=== PATIENT | female | born 1980 | race Caucasian/White ===

== ENCOUNTER 2017-04-17 11:10 | Emergency (ER) | payer SELFPAY ==
--- NOTE | 2017-04-17 11:32 | ED ---
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 Patient states she was trying to take the cap off of a needle to wast however it slipped and stuck her left thumb. Patient had access to patient/source medical record as she was providing care and states she has no history of HIV or hepatitis and has routine bloodwork taking due to . States she is not concerned however was following protocol. Denies any complaints or concerns at this time. Tetanus is UTD. Denies . 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 Mechanism of Injury: trying to waste a capped needle however slipped sticking her left thumb Needlestick: Hollow Needle Blood on Needle: Yes - unknown however it was a used needle Depth of Needlestick: Puncture - with scratch Bleeding at Site: Yes - very minimal Body Fluid Exposure: Blood Treatment [employer] SOFTWARE DEVELOPMENT ENGINEER: Cleaned Wound, Irrigation - Source Information HIV: No Hepatitis: No - Risk Factors Needlestick Risk Factor: Low Risk: Superficial Scratch, Low Risk: Short Duration , Low Risk: Source HIV/Hepatitis B Negative/Asymptomatic - Other Discussed Post-Exposure prophylaxis (PEP) for HIV: Declined Discussed PEP for Hepatitis-B: Declined Serologic Testing (HIV/HBV) Declined by Patient: No (Must be retained for 90 days, if drawn) PMH/Surg Hx/FS Hx/Imm Hx Endocrine/Hematology History: Denies: Hx Diabetes, Hx Thyroid Disease Cardiovascular History: Denies: Hx Hypercholesterolemia, Hx Hypertension, Hx Peripheral Vascular Disease Respiratory History: Denies: Hx Asthma Musculoskeletal History: Denies: Hx Arthritis, Hx Osteoporosis, Hx Scoliosis Sensory History: Denies: Hx Cataracts, Hx Contacts or Glasses, Hx Glaucoma Opthamlomology History: Denies: Hx Cataracts, Hx Contacts or Glasses, Hx Glaucoma Neurological History: Denies: Hx Headaches, Hx Seizures, Hx Transient Ischemic Attacks (TIA), Other Neuro Impairments/Disorders Psychiatric History: Denies: Hx Anxiety, Hx Depression - Surgical History Surgery Procedure, Year, and Place: Lasik eye surgery 2011 - Immunization History Immunizations Up to Date: Yes Infectious Disease History: Denies: Traveled Outside the [place] in Last 30 Days - Family History Known Family History: Positive: None - Social History Alcohol Use: Rare Hx Substance Use: No Substance Use Type: Reports: None Hx Tobacco Use: No Smoking Status (MU): Never Smoked Tobacco Review of Systems Constitutional: Negative Cardiovascular: Negative Respiratory: Negative Gastrointestinal: Negative Musculoskeletal: Negative Positive: Other - needlestick Neurological: Negative All Other Systems Reviewed And Are Negative: Yes Physical Exam Triage Information Reviewed: Yes Vital Signs On Initial Exam: Initial Vitals Temp Pulse Resp BP Pulse Ox 97.4 F 77 18 128/82 98 04/17/17 11:11 04/17/17 11:11 04/17/17 11:11 04/17/17 11:11 04/17/17 11:11 Vital Signs Reviewed: Yes Appearance: Positive: Well-Appearing, No Pain Distress, Well-Nourished Skin: Positive: Warm, Skin Color Reflects Adequate Perfusion, Dry, Other - small scratch noted on anterior left thumb with small puncture and per patient no surround erythema or rednesss Head/Face: Positive: Normal Head/Face Inspection Eyes: Positive: Normal, Conjunctiva Clear ENT: Positive: Hearing grossly normal Neck: Positive: Supple, Nontender Respiratory/Lung Sounds: Positive: Clear to Auscultation, Breath Sounds Present. Negative: Rales, Rhonchi, Wheezes Cardiovascular: Positive: Normal, RRR, Pulses are Symmetrical in both Upper and Lower Extremities - 2+ pedal and radial. Negative: Murmur, Rub Bowel Sounds: Positive: Present Musculoskeletal: Positive: Normal, Strength/ROM Intact Neurological: Positive: Normal, Sensory/Motor Intact, Alert, Oriented to Person Place, Time, CN Intact II-III, Reflexes Intact, NV Bundle Intact Distally, Normal Gait Psychiatric: Positive: Affect/Mood Appropriate AVPU Assessment: Alert Diagnostics - Vital Signs Vital Signs Temp Pulse Resp BP Pulse Ox 04/17/17 11:11 97.4 F 77 18 128/82 98 - Laboratory Lab Statement: Any lab studies that have been ordered have been reviewed, and results considered in the medical decision making process. Needlestick Course/Dx - Course Course Of Treatment: protocol for needlestick followed. was educated on PEP. declined starting treatment at this time. blood was drawn for base line. denies any history of known HIV/hepatitis. Educated that getting bloodwork from source is something she should try and complete if patient is willing. given Job' s information. no further action needed at this time. tetanus is already UTD. - Diagnoses Provider Diagnoses: Needlestick injury of finger of left hand Discharge - Discharge Plan Condition: Stable Disposition: HOME Patient Education Materials: Needle Stick Injuries (ED) Referrals: Job POOLE,Jovany Farooq [Medical Doctor] - Additional Instructions: if you wish to obtain PPE please contact Dr Brasher. Info above. be sure to have source patient tested as we discussed.
[2017-04-17 11:34] VITALS: BP 125/78
[2017-04-17 12:53] LABS: Manual Entry Verification BM; Rapid HIV INT CONT QC Line Present; Rapid HIV Kit Lot# F308002
== END 2017-04-17 11:34 | disposition home or self-care (01) ==
LOC: ED 11:10
DX: S69.92XA Unspecified injury of left wrist, hand and finger(s), initial encounter (principal); W46.0XXA Contact with hypodermic needle, initial encounter; Y93.9 Activity, unspecified; Y92.9 Unspecified place or not applicable; Y99.9 Unspecified external cause status
CPT/HCPCS: 36415; 86703; 86706; 86803; 87340; 99282